=== PATIENT | male | born 1965 | race Caucasian/White ===

== ENCOUNTER 2020-09-12 06:09 | Day surgery (SDC) | payer OTHER ==
[~2020-09-12] VITALS: Ht 185.4 cm; Wt 93.6 kg
[2020-09-12] MEDS ORDERED: METO25TA91 PO (06:57)
[2020-09-12] MEDS ORDERED: AMLO-150 PO (06:57)
[2020-09-12] MEDS ORDERED: COLC0.6T37 PO (06:57)
[2020-09-12] MEDS ORDERED: FEBU80TA2 PO (06:57)
[2020-09-12] MEDS ORDERED: FLUT1AER INH (06:57)
[2020-09-12] MEDS ORDERED: TEMA30CA PO (06:57)
[2020-09-12] MEDS ORDERED: ACYC-113 PO (06:57)
[2020-09-12] MEDS ORDERED: SODIUM CHLORIDE 0.9% 1,000 ML IV SCH (07:00)
[2020-09-12] MEDS ORDERED: ADENOSINE 6 MG/2 ML ONE (07:17)
[2020-09-12] MEDS ORDERED: LIDOCAINE 2%, 20ML ONE (07:17)
[2020-09-12] MEDS ORDERED: ISOPROTERENOL 0.2MG/ML, 5ML ONE (07:17)
[2020-09-12 07:21] LABS: CALCIUM 9.8 mg/dL (8.5-10.1); CHLORIDE 107 mmol/L (98-107); CREATININE 1.02 mg/dL (0.7-1.3)
[2020-09-12 07:27] LABS: ANION GAP 6 mmol/L (5-15)
[2020-09-12 07:44] LABS: BASOPHILS % (AUTO) 1 % (0-1); EOSINOPHILS % (AUTO) 3 % (1-7); LYMPHOCYTES % (AUTO) 31 % (22-44); MEAN CORPUSCULAR HEMOGLOBIN 30.4 pg (27.5-34.5); MEAN PLATELET VOLUME 8.5 fL (7.4-10.4); MONOCYTES % (AUTO) 10 % (2-9); NEUTROPHILS % (AUTO) 55 % (42-75); PLATELET COUNT 275 x10^3/uL (130-400); RED BLOOD COUNT 5.46 x10^6/uL (4.38-5.82)
[2020-09-12 07:45] LABS: MD NO
[2020-09-12] MEDS ORDERED: MIDAZOLAM 1 MG/ML, 5ML ONE ×2 (08:38→09:06)
[2020-09-12] MEDS ORDERED: FENTANYL PF 100 MCG/2ML ONE (08:38)
[2020-09-12] MEDS ORDERED: FENTANYL PF 250 MCG/5ML ONE (09:06)
[2020-09-12] MEDS ORDERED: COLCHICINE 0.6 MG PO PRN (10:00)
[2020-09-12] MEDS ORDERED: ACYCLOVIR 200 MG CAPSULE PO PRN (10:00)
[2020-09-12] MEDS ORDERED: ACETAMINOPHEN 325 MG TABLET ONE (12:57)
[2020-09-12] MEDS ORDERED: ACETAMINOPHEN 325 MG TABLET PO ONE (13:00)
[2020-09-13] MEDS ORDERED: FLUTICASONE/VILANTEROL 100-25MCG/INH INH SCH (09:00)
[2020-09-13] MEDS ORDERED: TEMAZEPAM 30 MG CAPSULE PO SCH (09:00)
[2020-09-13] MEDS ORDERED: FEBUXOSTAT 80 MG PO SCH (09:00)
[2020-09-13] MEDS ORDERED: AMLODIPINE 5 MG TABLET PO SCH (09:00)
== END 2020-09-12 14:48 | disposition home or self-care (01) ==
LOC: CACL 06:09
PROVIDERS: ATTEND Internal Medicine Cardiovascular Disease
DX: I47.1 Supraventricular tachycardia (principal); J45.909 Unspecified asthma, uncomplicated; G47.30 Sleep apnea, unspecified; F41.9 Anxiety disorder, unspecified; Z79.899 Other long term (current) drug therapy; Z91.018 Allergy to other foods; Z99.81 Dependence on supplemental oxygen
CPT/HCPCS: 36415; 71046; 80048; 85025; 93613; 93621; 93623; 93653; 99156; 99157; C1730; C1894; C2630; J2250; J3010; J0153